=== PATIENT | female | born 1965 | race Caucasian/White ===

== ENCOUNTER 2021-04-16 02:07 | Emergency (ER) | payer BC ==
[~2021-04-16] VITALS: Ht 147.3 cm; Wt 64.4 kg
[2021-04-16 03:44] LABS: Basophils # (auto) 0.1 10 ^3/uL (0-0.2); Basophils % (auto) 2.2 % (0.0-2.0); Eosinophils # (auto) 0.2 10 ^3/uL (0-0.8); Eosinophils % (auto) 3.5 % (0.0-7.0); Hematocrit 39.3 % (36.0-46.0); Hemoglobin 13.1 g/dL (12.2-16.2); Lymphocytes # (auto) 1.5 10 ^3/uL (0.4-5.4); Lymphocytes % (auto) 25.3 % (10.0-50.0); Mean Corpuscular Hemoglobin 30.7 pg (28.0-32.0); Mean Corpuscular Hgb Conc. 33.2 g/dL (32.0-36.0); Mean Corpuscular Volume 92.3 fL (80.0-100.0); Monocytes # (auto) 0.3 10 ^3/uL (0-1.3); Monocytes % (auto) 5.6 % (0.0-12.0); Neutrophils # (auto) 3.8 10 ^3/uL (1.6-8.6); Neutrophils % (auto) 63.4 % (37.0-80.0); Red Blood Cells 4.26 10^6/uL (4.0-5.20); Red Cell Distribution Width 13.8 % (11.8-14.3)
[2021-04-16 04:06] LABS: Albumin 3.4 g/dL (3.4-5.0); BUN/Creatinine Ratio 16.7; Calcium 8.4 mg/dL (8.5-10.1); Potassium 3.6 mmol/L (3.5-5.1)
[2021-04-16 04:08] LABS: Total Protein 6.7 g/dL (6.4-8.2)
[2021-04-16 05:01] LABS: Urine Bacteria NONE SEEN /hpf (None Seen); Urine Blood Negative /uL (Negative); Urine Hyaline Cast FEW /lpf (0 - 2); Urine Mucus FEW (None Seen); Urine WBC 19 /hpf (0 - 5)
[2021-04-16] MEDS ORDERED: IOHEXOL 300 MG/ML 100ML BOTTLE IJ ONE (08:25)
[2021-04-16] MEDS ORDERED: PERCOT PO (09:59)
[2021-04-16] MEDS ORDERED: CIPR-173 PO (09:59)
[2021-04-16] MEDS ORDERED: METR500T PO (09:59)
[2021-04-16] MEDS ORDERED: amLODIPine BESYLATE 5 MG TAB PO ONE (10:00)
[2021-04-16 10:25] VITALS: BP 171/94
== END 2021-04-16 10:27 | disposition home or self-care (01) ==
LOC: ER 02:07
DX: K52.9 Noninfective gastroenteritis and colitis, unspecified (principal); I10 Essential (primary) hypertension
CPT/HCPCS: 36415; 74177; 80053; 81001; 82270; 85025; 86850; 86900; 86901; 99285; Q9967